=== PATIENT | male | born 1975 | race Caucasian/White ===

== ENCOUNTER 2016-10-18 11:25 | Day surgery (SDC) | payer OTHER, SELFPAY ==
--- NOTE | ~2016-10-18 | OP ---
Record Of Operation [facility] [address] [place]. [address] NAME: JUAN CARLOS ESPOSITO JR : 79 STATUS : REG [facility] [place] PAT#: [id number] AGE: 41 ADM/REG DATE : 10/18/16 MR#: [id number] REPORT SERV DATE: 10/18/16 DICTATED BY: ALEJANDRO AIKEN DATE: 10/18/16 REPORT STATUS : Draft TRANSCRIBED BY: MODL DATE: 10/18/16 DATE OF PROCEDURE: 10/18/2016 PREOPERATIVE DIAGNOSES: 1. Adenopathy with night sweats. 2. Nicotine dependence. POSTOPERATIVE DIAGNOSES: 1. Adenopathy with night sweats. 2. Nicotine dependence. PROCEDURE: Right deep subcutaneous axillary lymph node biopsy with Pathology consult. ANESTHESIA: General. SURGEON: Alejandro Aiken M.D. FUNCTIONAL TESTER: Prieto. COMPLICATIONS: None. DRAINS: None. ESTIMATED BLOOD LOSS: 20 mL. FINDINGS: The patient was noted to have markedly enlarged lymph node in the right axilla. Two very large andi complexes were sent from the superficial and deep subcutaneous tissues to pathology with the initial suspicion for lymphoma. OPERATIVE TECHNIQUE: The patient was brought to the operating room and placed on the table in supine position. He had preoperative IV antibiotics. He had sequential hose in place. He underwent general endotracheal anesthesia with his right arm extended and was prepped and draped in a sterile fashion. A time-out was completed. Local anesthesia was instilled to the proposed skin incision site. Right axillary transverse incision was made and carried through the subcutaneous tissue to the level of the first enlarged lymph node. It was circumferentially dissected down into the deep subcutaneous tissues using electrocautery at the efferent and afferent limbs. It was clamped, divided, and ligated and sent to pathology. An additional 3 cm node was adjacent and it was then grasped and elevated and carefully dissected away from the soft tissue and excised and clamped, divided, and ligated with a Vicryl suture at its base as well and sent to pathology. The initial evaluation was suspicious for lymphoma. The wound was then thoroughly irrigated and hemostasis was obtained using electrocautery. The deep subcutaneous tissues were reapproximated using interrupted 2-0 Vicryl sutures. The superficial subcutaneous tissues were reapproximated using 3-0 Vicryl suture. The skin edges were reapproximated using running subcuticular Monocryl suture. Dermabond was applied. He was extubated and taken to the recovery room in stable condition. All sponge and needle counts were reported correct. Record Of Operation [facility] [address] [place]. [address] NAME: JUAN CARLOS ESPOSITO JR : 79 STATUS : REG [facility] [place] PAT#: [id number] AGE: 41 ADM/REG DATE : 10/18/16 MR#: [id number] REPORT SERV DATE: 10/18/16 DICTATED BY: ALEJANDRO AIKEN DATE: 10/18/16 REPORT STATUS : Draft TRANSCRIBED BY: MODStacey DATE: 10/18/16 /PEACE Alejandro Aiken M.D. / [id number] CC: Patricio Ramos M.D. Dennis Leonard, M.D.
[~2016-10-18 11:25] MED LIST: CEPHALEXIN PO
[2016-11-01] MEDS ORDERED: *DENIES (13:25)
== END 2016-10-18 17:22 | disposition home or self-care (01) ==
LOC: SDC 11:25
PROVIDERS: Surgery
PROC: 07B50ZX Excision of Right Axillary Lymphatic, Open Approach, Diagnostic (ICD-10-PCS; principal; 2016-10-18 13:15)
DX: C85.14 Unspecified B-cell lymphoma, lymph nodes of axilla and upper limb (principal); R61 Generalized hyperhidrosis; Z79.899 Other long term (current) drug therapy; F17.200 Nicotine dependence, unspecified, uncomplicated; Z98.890 Other specified postprocedural states
CPT/HCPCS: 88307; 88333; 88341; 88342; 88360; 88367; A9270-GY; J0690; J2250; J2270; J2405; J3010

== ENCOUNTER 2016-11-06 06:39 | Day surgery (SDC) | payer OTHER, SELFPAY ==
--- NOTE | ~2016-11-06 | OP ---
Record Of Operation [facility] [address] [place]. [address] NAME: JUAN CARLOS ESPOSITO JR : 79 STATUS : REG [facility] PAT#: [id number] AGE: 41 ADM/REG DATE : 11/06/16 MR#: [id number] REPORT SERV DATE: 11/06/16 DICTATED BY: ALEJANDRO AIKEN DATE: 11/06/16 REPORT STATUS : Draft TRANSCRIBED BY: MODL DATE: 11/06/16 DATE OF PROCEDURE: 11/06/2016 PREOPERATIVE DIAGNOSES: 1. Lymphoma. 2. Need for central IV access. POSTOPERATIVE DIAGNOSES: 1. Lymphoma. 2. Need for central IV access. PROCEDURE: Left subclavian vein Port-A-Cath placement with fluoroscopy. ANESTHESIA: General. SURGEON: Alejandro Aiken M.D. SENIOR ACCOUNT DIRECTOR: Prieto. COMPLICATIONS: None. DRAINS: None. ESTIMATED BLOOD LOSS: 20 mL. OPERATIVE TECHNIQUE: The patient was brought to the operating room and placed on the table in supine position. He had preoperative antibiotics. He had sequential hose in place. He voided prior to the procedure. He underwent general endotracheal anesthesia and was prepped and draped in a sterile fashion and a time-out was completed. Local anesthesia was instilled in the left subclavian space and a field block was completed. A needle was used to access the subclavian vein and a wire was passed via Seldinger technique and confirmed in the central venous system. A transverse incision was made at the wire insertion site and then the incision was carried down to the anterior chest wall. A pocket was then created inferiorly. The pre-assembled flush catheter was then secured to the chest wall and cut to size with the aid of fluoroscopy. The dilator and sheaths were placed over the wire and the wire and dilator were removed. The precut catheter was then placed through the sheath, which was peeled away. It was accessed and noted to aspirate and flushed easily. Upon examination under fluoroscopy, it was curled at the end. Several attempts to advance it further were unsuccessful and therefore the catheter was withdrawn approximately 2 cm with no curling of the distal end of the catheter within the central venous system. The catheter after being cut was placed back on the reservoir with the secured cap. The reservoir was then once again accessed and was noted to aspirate easily and was flushed with heparinized solution. The patient had contrast dye afterward and it was noted to have good flow into the distal venous system. There was no evidence of any other abnormalities and at this point, the wound was irrigated and the subcutaneous tissues were reapproximated using running 3-0 Vicryl suture followed by running Monocryl subcuticular stitch. Dermabond was Record Of Operation [address] [address] NAME: JUAN CARLOS ESPOSITO JR : 79 STATUS : REG [facility] PAT#: [id number] AGE: 41 ADM/REG DATE : 11/06/16 MR#: [id number] REPORT SERV DATE: 11/06/16 DICTATED BY: ALEJANDRO AIKEN DATE: 11/06/16 REPORT STATUS : Draft TRANSCRIBED BY: PEACE DATE: 11/06/16 applied. He was extubated and taken to the recovery room in stable condition. All sponge and needle counts were reported correct. /PEACE Alejandro Aiken M.D. / [id number] CC: Patricio Ramos M.D.
[~2016-11-06 06:39] MED LIST changes: +*DENIES
[2016-11-06 07:16] LABS: BUN (BLOOD UREA NITROGEN) 9 MG/DL (6-23); CALCIUM, SERUM 9.2 MG/DL (8.5-10.4); CHLORIDE, SERUM 104 MMOL/L (96-112); CO2 (CARBON DIOXIDE) 26 MMOL/L (24-34); CREATININE 0.91 MG/DL (0.70-1.30); GFR AFRICAN AMERICAN 123 ML/MIN (>=60); GFR NON AFRICAN AMERICAN 106 ML/MIN (>=60); GLUCOSE, SERUM 95 MG/DL (60-99); POTASSIUM, SERUM 4.1 MMOL/L (3.5-5.3); SODIUM, SERUM 141 MMOL/L (135-148)
== END 2016-11-06 17:13 | disposition home or self-care (01) ==
LOC: SDC 06:39
PROVIDERS: Surgery
PROC: 05H633Z Insertion of Infusion Device into Left Subclavian Vein, Percutaneous Approach (ICD-10-PCS; principal; 2016-11-06 07:45)
DX: C85.90 Non-Hodgkin lymphoma, unspecified, unspecified site (principal); Z79.899 Other long term (current) drug therapy
CPT/HCPCS: 71010; 77001; 80048; C1751; J0690; J2250; J3010; Q9967